=== PATIENT | female | born 1990 | race Caucasian/White ===

== ENCOUNTER 2022-05-16 12:38 | Emergency (ER) | payer BC, MEDICAID, SELFPAY ==
[2022-05-16 12:50] VITALS: BP 109/68; PULSE 86; RESP 16; TEMP 36.7; O2SAT 100
--- NOTE | 2022-05-16 13:28 | ED.EAR ---
HPI - Ear Problem General Chief complaint: Ear Stated complaint: Ears Time Seen by Provider: 05/16/22 13:28 Source: patient, RN notes reviewed and old records reviewed Mode of arrival: ambulatory Limitations: no limitations History of Present Illness HPI Narrative: 31-year-old female who presents to [facility] with complaints of bilateral ears feeling clogged for the past 3 weeks, feels like she is underwater,denies any acute pain to ears, fevers, or sinus congestion. Patient reports that her left ear is worse than right. Patient states that she has pressure sensation with decreased hearing to her left ear. MD Complaint: decreased hearing and other (ear pressure left ear) Location: left ear Discharge from ear: Reports no Treatment prior to arrival: none Review of Systems Review of Systems: CONSTITUTIONAL: Denies fever, chills, or sweats. EYES: Denies visual changes, redness, or discharge. ENT: Denies rhinorrhea, congestion, sore throat, presure and decreased hearing especially to left ear.. CARDIOVASCULAR: Denies chest pain, palpitations, or edema. RESPIRATORY: Denies cough or dyspnea. GASTROINTESTINAL: Denies abdominal pain, nausea, vomiting, or diarrhea. GENITOURINARY: Denies dysuria or hematuria. SKIN: Denies rash or itching. MUSCULOSKELETAL: Denies back pain, joint pain, or myalgia. NEUROLOGIC: Denies headache, numbness, or weakness. PSYCHIATRIC: Denies anxiety or depression. All systems reviewed & are unremarkable except as noted in HPI and below PMFSH Surgical History Surgical History (Updated 05/17/22 @ 11:37 by Denise Kothari NP) History of tympanoplasty of left ear Social History Social History (Updated 05/17/22 @ 11:38 by Denise Kothari NP) Smoking status: Never smoker Alcohol intake: current Alcohol use details: rare social Substance use type: does not use Living arrangements: with family Gender identity (if verbalized by the patient): Female Comments At time of signature, agree with nursing past medical, surgical, social and family history. There is no relevant family history pertinent to the presenting complaint Exam Narrative: GENERAL: Well-appearing, well-nourished, and in no acute distress. HEAD: Normocephalic, atraumatic. EYES: PERRLA and EOMI. ENT: Nares clear, no rhinorrhea or epistaxis. Mucous membranes moist.Right TM normal with good light reflex, Left ear has cerumen impaction,once cleansed TM normal with no redness, throat pink with no swelling NECK: Supple.no lymphadenopathy CHEST: Clear to auscultation. No respiratory distress.BARRY 100% on room air HEART: Regular rate and rhythm. No murmur heard. Normal peripheral pulses., ABDOMEN: Soft, nontender, nondistended, normal active bowel sounds. EXTREMITIES: Normal range of motion. No edema. SKIN: Warm, dry, no rash. NEURO: No focal deficits. Alert and oriented x3. Course Course Emergency Course: Patient is aware of diagnosis, understands and agrees to treatment plan.? Anticipatory guidance given.? Patient agrees to follow-up as directed and is aware of reasons to seek care at the emergency department. Portions of this record may have been created with voice recognition software Level of Care: Express Care Visit Vital Signs Vital signs: Vital Signs Temperature 36.7 C 05/16/22 12:50 Pulse Rate 86 05/16/22 12:50 Respiratory Rate 16 05/16/22 12:50 Blood Pressure 109/68 05/16/22 12:50 Pulse Oximetry 100 05/16/22 12:50 Oxygen Delivery Room Air 05/16/22 12:50 Temperature 36.7 C 05/16/22 12:50 Pulse Rate 86 05/16/22 12:50 Respiratory Rate 16 05/16/22 12:50 Blood Pressure 109/68 05/16/22 12:50 Pulse Oximetry 100 05/16/22 12:50 Oxygen Delivery Room Air 05/16/22 12:50 Reviewed Procedures Ear Wax Removal Left Ear: Ear Wax Removal Date: 05/16/22 Ear Wax Removal Time: 13:30 Cerumenolytic Used: 5-10% Sodium Bicarb solution Results: Re-examined: cerumen removed
== END 2022-05-16 13:51 | disposition home or self-care (01) ==
PROVIDERS: Emergency Provider Registered Nurse; PCP Nurse Practitioner Family
DX: H61.22 Impacted cerumen, left ear (principal)
CPT/HCPCS: 69209; 99212; G0463

== ENCOUNTER 2022-06-07 11:05 | Outpatient (CLI) | payer BC, MEDICAID, SELFPAY | END 2022-06-07 11:06 | disposition home or self-care (01) | LOC: ANHBWCAUD 11:05 | PROVIDERS: PCP Nurse Practitioner Family; Visit Provider Otolaryngology | DX: H90.5 Unspecified sensorineural hearing loss (principal) | CPT/HCPCS: 92557; 92567 ==

== ENCOUNTER 2023-01-22 15:27 | Emergency (ER) | payer BC, MEDICAID, SELFPAY ==
[2023-01-22 15:32] VITALS: BP 124/64; PULSE 109; RESP 20; TEMP 36.6; O2SAT 97
--- NOTE | 2023-01-22 16:25 | ED.URI ---
HPI - URI/Sore Throat General Chief Complaint: Upper Respiratory Infection Stated Complaint: Cough and Chest Pain Time Seen by Provider: 01/22/23 16:25 Source: patient, RN notes reviewed and old records reviewed Mode of arrival: ambulatory Limitations: no limitations History of Present Illness HPI Narrative: 32-year-old female presents to the [facility] with complaints a cough that started 2 and half weeks ago. States her mom and her son both had similar symptoms and they are better. Patient does vape. Related Data Home Medications Medication Instructions Recorded Confirmed acyclovir 400 mg tablet mg 01/22/23 Allergies Allergy/AdvReac Type Severity Reaction Status Date / Time No Known Allergies Allergy Verified 01/22/23 15:37 Review of Systems Review of Systems: All systems reviewed & are unremarkable except as noted in HPI and below Constitutional: Constitutional: Reports no additional constitutional complaints Eyes: Eyes: Reports no additional eye complaints ENT: Reports system reviewed and no additional complaints, except as documented Cardiovascular: Cardiovascular: Reports no additional cardiovascular complaints, Denies chest pain and Denies dyspnea Respiratory: Respiratory: Reports as per HPI, Denies chest congestion, Reports cough and Denies dyspnea Gastrointestinal: Gastrointestinal: Reports no additional gastrointestinal complaints, Denies abdominal pain, Denies nausea and Denies vomiting Musculoskeletal: Musculoskeletal: Reports no additional musculoskeletal complaints Integumentary/Breasts: Skin/Breast: Reports system reviewed and no additional complaints, except as docu Neurologic: Reports system reviewed and no additional complaints, except as documented Psychiatric: Psychiatric: Reports no additional psychiatric complaints Allergic/Immunologic: Allergic/Immunologic: Reports no additional allergic/immunologic complaints PMFSH Surgical History Surgical History History of tympanoplasty of left ear Social History Social History Smoking status: Never smoker Alcohol intake: current Alcohol use details: rare social Substance use type: does not use Living arrangements: with family Gender identity (if verbalized by the patient): Female Comments At the time of my signature, I reviewed and agree with the nursing past medical, surgical, social, and family history. There is no relevant family history pertinent to the patient complaint. Exam Const: General: cooperative, healthy appearing, comfortable, no acute distress, well developed, alert and well nourished Nutritional Appearance: well nourished Orientation/consciousness: patient oriented x3 Limitations: no limitations HENMT: Head: normal to inspection Ears: hearing grossly normal bilaterally, external ears normal, TM's normal bilaterally, EAC's normal, mastoids normal and no periauricular adenopathy Face/Nose/Sinus: Normal external nose present, Normal nares present, Normal nasal mucous membranes and turbinates present, normal facial exam and face symmetric Face and sinus: normal facial exam and face symmetric Mouth: Yes Normal oral and palatal mucosa present, Yes lip normal and Yes moist mucous membranes Throat: posterior oropharynx normal, tonsils normal, uvula midline and no uvular edema Eyes: General: appearance normal, both eyes and all related structures Alignment and Position: alignment normal Periorbital: periorbital findings normal Pupils: Equal, round and reactive pupils present EOM: EOMs intact bilaterally Neck: Neck: normal visual inspection, full ROM, no lymphadenopathy and no meningeal signs Chest: Chest palpation & inspection: normal inspection of the chest Resp: Effort & Inspection: normal respiratory effort and able to speak in complete sentences Auscultation: no crackles, no rales, no rhonchi and wh
== END 2023-01-22 16:41 | disposition home or self-care (01) ==
PROVIDERS: Emergency Provider Nurse Practitioner; PCP Nurse Practitioner Family
DX: J40 Bronchitis, not specified as acute or chronic (principal)
CPT/HCPCS: 99213; G0463

== ENCOUNTER 2023-02-14 14:30 | Outpatient (RCR) | payer BC, MEDICAID, SELFPAY | END 2023-03-27 23:59 | disposition home or self-care (01) | LOC: ANHBWCAUD 14:30 | PROVIDERS: PCP Nurse Practitioner Family; Visit Provider Nurse Practitioner Family | DX: Z46.1 Encounter for fitting and adjustment of hearing aid (principal) | CPT/HCPCS: 99199; V5264 ==